=== PATIENT | female | born 1975 | race Caucasian/White ===

== ENCOUNTER 2020-10-23 21:05 | Emergency (ER) | payer OTHER ==
[~2020-10-23] VITALS: Ht 167.6 cm; Wt 75.0 kg
[2020-10-24] MEDS ORDERED: acetaminophen 325mg tablet PO ONE (01:50)
[2020-10-24] MEDS ORDERED: TETanus/Pertussis (Acell)/Diphther VAC/PF (Tdap-Adult) 0.5ml syringe IMVAC ONE (01:50)
[2020-10-24] MEDS ORDERED: LIDOcaine 1% 30ml preserv. free vial IJ ONE (02:00)
[2020-10-24] MEDS ORDERED: ONDA4TAB6 PO (03:22)
[2020-10-24] MEDS ORDERED: CEPH-585 PO (03:22)
[2020-10-24 04:30] VITALS: BP 130/88
== END 2020-10-24 04:47 | disposition home or self-care (01) ==
LOC: ER 21:07
DX: S01.311A Laceration without foreign body of right ear, initial encounter (principal); S43.401A Unspecified sprain of right shoulder joint, initial encounter; S06.0X0A Concussion without loss of consciousness, initial encounter; F10.129 Alcohol abuse with intoxication, unspecified; M79.601 Pain in right arm; H92.01 Otalgia, right ear; R51.9 Headache, unspecified; Z20.3 Contact with and (suspected) exposure to rabies; Z79.2 Long term (current) use of antibiotics; Z79.899 Other long term (current) drug therapy; X58.XXXA Exposure to other specified factors, initial encounter; Y93.89 Activity, other specified; Y92.89 Other specified places as the place of occurrence of the external cause; Y99.8 Other external cause status; Y90.9 Presence of alcohol in blood, level not specified
CPT/HCPCS: 12011; 12052; 90471; 90715; 99284; J2001; 12013; 99283; 99285